=== PATIENT | male | born 1935 | race Two or more races ===

== ENCOUNTER 2020-07-03 18:57 | Inpatient (IN) | payer OTHER ==
[~2020-07-03] VITALS: Ht 172.7 cm; Wt 82.6 kg
[2020-07-03] MEDS ORDERED: SODIUM CHLORIDE 0.9% 1000ML BAG (SEPSIS BOLUS) IV ONE (19:15)
[2020-07-03] MEDS ORDERED: PIPERACILLIN/TAZ 3.375G PREMIX 50 ML IV ONE (19:15)
[2020-07-03] MEDS ORDERED: VANCOMYCIN 1 G PREMIX 200 ML IV ONE (19:15)
[2020-07-03 20:26] LABS: BASOPHILS % 0.2 % (0.0-2.0); HEMOGLOBIN. 12.8 g/dL (14.0-18.0); LYMPHOCYTES % 17.4 % (20.0-50.0); MEAN CORPUSCULAR HEMOGLOBIN 25.5 pg (28.0-32.0); MEAN CORPUSCULAR VOLUME 79.7 fL (80.0-94.0); MEAN PLATELET VOLUME 8.8 fl (7.4-10.4); NEUTROPHILS % 67.4 % (40.0-76.0); PLATELET 186 x1000/uL (130-400); RED BLOOD CELL COUNT 5.02 mill/uL (4.7-6.1); RED CELL DISTRIBUTION WIDTH 16.7 % (11.6-14.6)
[2020-07-03 20:31] LABS: PROTHROMBIN TIME 10.5 sec (9.6-11.0)
[2020-07-03 20:57] LABS: CLARITY URINE CLOUDY (CLEAR); COLOR URINE YELLOW (YELLOW); KETONES URINE NEGATIVE (NEGATIVE); LEUKOCYTE ESTERASE URINE 3+ (NEGATIVE); NITRITE URINE POSITIVE (NEGATIVE); OCCULT BLOOD URINE 1+ (NEGATIVE); PROTEIN URINE 2+ (NEGATIVE); SPECIFIC GRAVITY URINE 1.017 (1.005-1.030)
[2020-07-04 00:19] LABS: CHLORIDE 110 mEq/L (98-107)
[2020-07-04] MEDS ORDERED: BENZONATATE 100MG CAPSULE PO PRN (09:30)
[2020-07-04] MEDS ORDERED: ONDANSETRON HCL 4MG/2ML INJ IV PRN (09:30)
[2020-07-04] MEDS ORDERED: CEFTRIAXONE 1 G PREMIX 50 ML IV SCH (10:00)
[2020-07-04] MEDS ORDERED: AZITHROMYCIN 500 MG TABLET PO SCH (10:00)
[2020-07-04] MEDS: ENOXAPARIN 40MG/0.4ML SYR SUBCUT SCH (10:00)
[2020-07-04] MEDS: DEXAMETHASONE 2MG TABLET PO SCH (10:00)
[2020-07-04] MEDS: CEFTRIAXONE 1,000 MG in DEXTROSE 5% WATER 50 ML IV SCH (12:00)
[2020-07-04 14:16] LABS: BG DEOXYHEMOGLOBIN 0.7 % (0.0-5.0); BG FRACTION INSPIRED OXYGEN 99.8; BG HCO3 ACT 29.9 mmol/L (22.0-26.0); BG METHEMOGLOBIN 0.3 % (0.0-1.5); BG OXYGEN SATURATION 99.3 % (92.0-98.5); BG PCO2 45.7 mmHg (35.0-45.0); BG PH 7.434 (7.350-7.450); BG SAMPLE SITE LEFT RADIAL; BG TOTAL HEMOGLOBIN 12.1 g/dL (12.0-18.0); BG VENT MODE MASK - NRB
[2020-07-05 10:00] VITALS: BP 137/64
[2020-07-05] MEDS: AZITHROMYCIN 250 MG TABLET PO SCH (10:43)
[2020-07-05] MEDS: ENOXAPARIN 40MG/0.4ML SYR SUBCUT SCH (10:43)
[2020-07-05] MEDS: DEXAMETHASONE 2MG TABLET PO SCH (10:44)
[2020-07-05 12:00] VITALS: BP 128/71
[2020-07-05] MEDS: ALBUTEROL 6.7GM HFA INHALER ORI SCH ×3 (12:00→23:52)
[2020-07-05] MEDS: CEFTRIAXONE 1,000 MG in DEXTROSE 5% WATER 50 ML IV SCH (13:03)
[2020-07-05 16:00] VITALS: BP 128/71
[2020-07-05] MEDS ORDERED: PANT40SU PO (17:19)
[2020-07-05] MEDS ORDERED: AZIT250T12 PO (17:19)
[2020-07-05] MEDS ORDERED: GUAI600T26 PO (17:19)
[2020-07-05] MEDS ORDERED: ASPI-1497 PO (17:19)
[2020-07-05] MEDS ORDERED: LORA-249 PO (17:19)
[2020-07-05 20:00] VITALS: BP 141/68
[2020-07-05 21:38] LABS: T4 FREE 0.85 ng/dL (0.76-1.46)
[2020-07-06 00:05] VITALS: BP 142/69
[2020-07-06 04:00] VITALS: BP 110/62
[2020-07-06] MEDS: ALBUTEROL 6.7GM HFA INHALER ORI SCH ×3 (05:42→23:15)
[2020-07-06 06:46] LABS: HEMATOCRIT. 42.3 % (42.0-52.0); HEMOGLOBIN. 13.2 g/dL (14.0-18.0); MEAN CORPUSCULAR HEMOGLOBIN 25.4 pg (28.0-32.0); MEAN CORPUSCULAR VOLUME 81.2 fL (80.0-94.0); MEAN PLATELET VOLUME 8.5 fl (7.4-10.4); PLATELET 197 x1000/uL (130-400); RED BLOOD CELL COUNT 5.21 mill/uL (4.7-6.1)
[2020-07-06 07:03] LABS: CHLORIDE 114 mEq/L (98-107)
[2020-07-06 08:00] VITALS: BP 142/64
[2020-07-06] MEDS: DEXAMETHASONE 2MG TABLET PO SCH (08:25)
[2020-07-06] MEDS: AZITHROMYCIN 250 MG TABLET PO SCH (08:25)
[2020-07-06] MEDS: ENOXAPARIN 40MG/0.4ML SYR SUBCUT SCH (08:25)
[2020-07-06 12:00] VITALS: BP 136/61
[2020-07-06] MEDS: CEFTRIAXONE 1,000 MG in DEXTROSE 5% WATER 50 ML IV SCH (12:50)
[2020-07-06 16:00] VITALS: BP 131/71
[2020-07-06 20:00] VITALS: BP 118/54
[2020-07-06 22:29] LABS: NUCLEATED RED BLOOD CELLS 1 /100 WBC; PLATELET ESTIMATE NORMAL
[2020-07-07 00:21] VITALS: BP 112/54
[2020-07-07 04:00] VITALS: BP 133/90
[2020-07-07] MEDS: MEROPENEM 500 MG in SODIUM CHLORIDE 0.9% 50 ML IV SCH ×3 (04:06→21:08)
[2020-07-07] MEDS: ALBUTEROL 6.7GM HFA INHALER ORI SCH ×4 (05:25→23:37)
[2020-07-07 08:00] VITALS: BP 138/68
[2020-07-07] MEDS: AZITHROMYCIN 250 MG TABLET PO SCH (08:16)
[2020-07-07] MEDS: ENOXAPARIN 40MG/0.4ML SYR SUBCUT SCH (08:16)
[2020-07-07] MEDS: DEXAMETHASONE 2MG TABLET PO SCH (08:16)
[2020-07-07 12:00] VITALS: BP 130/56
[2020-07-07 16:00] VITALS: BP 122/56
[2020-07-07 20:00] VITALS: BP 140/64
[2020-07-08] VITALS (7 sets, daily range): BP systolic 100–147; BP diastolic 57–96
[2020-07-08] MEDS: ALBUTEROL 6.7GM HFA INHALER ORI SCH ×3 (05:58→18:54)
[2020-07-08] MEDS: MEROPENEM 500 MG in SODIUM CHLORIDE 0.9% 50 ML IV SCH ×3 (06:10→21:53)
[2020-07-08 06:12] LABS: HEMATOCRIT. 36.9 % (42.0-52.0); HEMOGLOBIN. 11.8 g/dL (14.0-18.0); MEAN CORPUSCULAR HEMOGLOBIN 25.6 pg (28.0-32.0); MEAN CORPUSCULAR VOLUME 80.2 fL (80.0-94.0); MEAN PLATELET VOLUME 8.7 fl (7.4-10.4); PLATELET 239 x1000/uL (130-400); RED CELL DISTRIBUTION WIDTH 16.2 % (11.6-14.6)
[2020-07-08 06:13] LABS: CHLORIDE 112 mEq/L (98-107)
[2020-07-08 07:23] LABS: BG CARBOXYHEMOGLOBIN 0.6 % (0.5-1.5); BG DEOXYHEMOGLOBIN 2.2 % (0.0-5.0); BG HCO3 ACT 27.7 mmol/L (22.0-26.0); BG METHEMOGLOBIN 0.3 % (0.0-1.5); BG OXYGEN SATURATION 97.8 % (92.0-98.5); BG OXYHEMOGLOBIN 96.9 % (94.0-97.0); BG PCO2 34.1 mmHg (35.0-45.0); BG PH 7.527 (7.350-7.450); BG PO2 94.3 mmHg (75.0-100.0); BG SAMPLE SITE RIGHT RADIAL; BG TOTAL HEMOGLOBIN 12.3 g/dL (12.0-18.0); BG VENT MODE ROOM AIR
[2020-07-08] MEDS: AZITHROMYCIN 250 MG TABLET PO SCH (08:53)
[2020-07-08] MEDS: DEXAMETHASONE 2MG TABLET PO SCH (08:53)
[2020-07-08] MEDS: ENOXAPARIN 40MG/0.4ML SYR SUBCUT SCH (08:54)
[2020-07-08 13:30] LABS: PLATELET ESTIMATE NORMAL
[2020-07-09] VITALS: BP 120/62
[2020-07-09 04:00] VITALS: BP 129/67
[2020-07-09] MEDS: MEROPENEM 500 MG in SODIUM CHLORIDE 0.9% 50 ML IV SCH ×3 (05:43→21:43)
[2020-07-09] MEDS: ALBUTEROL 6.7GM HFA INHALER ORI SCH ×4 (05:47→18:03)
[2020-07-09 08:00] VITALS: BP 134/61
[2020-07-09] MEDS: ENOXAPARIN 40MG/0.4ML SYR SUBCUT SCH (09:48)
[2020-07-09 12:00] VITALS: BP 110/62
[2020-07-09 16:00] VITALS: BP 123/69
[2020-07-09 20:00] VITALS: BP 132/59
[2020-07-10] VITALS: BP 127/62
[2020-07-10 04:00] VITALS: BP 130/72
[2020-07-10] MEDS: MEROPENEM 500 MG in SODIUM CHLORIDE 0.9% 50 ML IV SCH ×3 (05:12→23:32)
[2020-07-10] MEDS: ALBUTEROL 6.7GM HFA INHALER ORI SCH ×5 (05:18→23:41)
[2020-07-10 08:00] VITALS: BP 136/66
[2020-07-10] MEDS: ENOXAPARIN 40MG/0.4ML SYR SUBCUT SCH (09:12)
[2020-07-10 16:00] VITALS: BP 123/72
[2020-07-10 20:00] VITALS: BP 132/80
[2020-07-11] VITALS (8 sets, daily range): BP systolic 108–149; BP diastolic 61–99
[2020-07-11] MEDS: MEROPENEM 500 MG in SODIUM CHLORIDE 0.9% 50 ML IV SCH ×2 (05:53→14:05)
[2020-07-11] MEDS: ALBUTEROL 6.7GM HFA INHALER ORI SCH ×3 (06:00→17:13)
[2020-07-11] MEDS: ENOXAPARIN 40MG/0.4ML SYR SUBCUT SCH (10:47)
== END 2020-07-11 20:15 | DRG 871 ==
LOC: ER 18:57 → EDBEDREQTM 21:22 → EDBEDREQ 21:22 → MICUSO 22:23 → EDBEDREQTM 22:26 → EDBEDREQSVC 22:26 → EDBEDREQ 22:26 → 7EST 07-05 08:48
PROVIDERS: ADMIT Internal Medicine; ATTEND Internal Medicine
PROC: 5A0935A Assistance with Respiratory Ventilation, Less than 24 Consecutive Hours, High Flow/Velocity Cannula (ICD-10-PCS; principal; 2020-07-03)
DX: A41.89 Other specified sepsis (principal); U07.1 COVID-19; J96.01 Acute respiratory failure with hypoxia; J12.89 Other viral pneumonia; E43 Unspecified severe protein-calorie malnutrition; E87.0 Hyperosmolality and hypernatremia; I45.2 Bifascicular block; J98.11 Atelectasis; Z16.12 Extended spectrum beta lactamase (ESBL) resistance; N39.0 Urinary tract infection, site not specified; D64.9 Anemia, unspecified; E87.8 Other disorders of electrolyte and fluid balance, not elsewhere classified; F03.90 Unspecified dementia, unspecified severity, without behavioral disturbance, psychotic disturbance, mood disturbance, and anxiety; I10 Essential (primary) hypertension; B96.89 Other specified bacterial agents as the cause of diseases classified elsewhere; I45.10 Unspecified right bundle-branch block; B96.20 Unspecified Escherichia coli [E. coli] as the cause of diseases classified elsewhere; B34.9 Viral infection, unspecified; I65.22 Occlusion and stenosis of left carotid artery; R00.1 Bradycardia, unspecified; Z86.73 Personal history of transient ischemic attack (TIA), and cerebral infarction without residual deficits; Z68.27 Body mass index [BMI] 27.0-27.9, adult; Z79.899 Other long term (current) drug therapy; Z79.51 Long term (current) use of inhaled steroids; D72.819 Decreased white blood cell count, unspecified
CPT/HCPCS: 36415; 36600; 71045; 80048; 80053; 80061; 81003; 82375; 82805; 82962; 83605; 83735; 83880; 84145; 84439; 84443; 84480; 84484; 85025; 87077; 87186; 87635; 93005; 93880; 99291; C1893; J0696; J1650; J2185; J2543; J3370; J7030; J7060; J8540